=== PATIENT | female | born 1965 | race Caucasian/White ===

== ENCOUNTER → 2023-02-23 | Outpatient (CLI) | payer SELFPAY ==
--- NOTE | 2023-02-23 14:00 | RAD_ITS ---
EXAM: XR LUMBOSACRAL SPINE, 4 OR 5 VIEWS CLINICAL INDICATION: None provided. Segmental and somatic dysfunction of lumbar region TECHNIQUE: 5 views. Including obliques. COMPARISON: No relevant prior studies available. FINDINGS: VERTEBRAE: Minimal anterior spondylosis at the superior margin of L4 and superior margin of L5. No endplate sclerosis. The usual lordotic curvature is well-maintained. Preserved vertebral body height. No fracture. No significant facet arthropathy. No evidence of pars defects on the oblique views. DISC SPACES: No acute findings. Normal disc height. GASTROINTESTINAL TRACT: Unremarkable as visualized. Included bowel gas pattern is non-obstructive. RAD/L/S Spine Min 4 Views IMPRESSION: Minimal spondylosis. Normal disc height. No significant spondylolisthesis. Electronically Signed: Lidia Varma MD at 8:54 EDT ,
== END | disposition home or self-care (01) ==
PROVIDERS: PCP Family Medicine; Referring Provider Chiropractor Orthopedic; Visit Provider Chiropractor Orthopedic
DX: M99.03 Segmental and somatic dysfunction of lumbar region (principal)
CPT/HCPCS: 72110